=== PATIENT | female | born 1960 | race Caucasian/White ===

== ENCOUNTER 2016-12-30 11:18 | Observation (INO) | payer OTHER ==
[~2016-12-30] VITALS: Ht 162.6 cm; Wt 89.0 kg
[2016-12-30] VITALS (8 sets, daily range): BP systolic 109–188; BP diastolic 58–87; PULSE 72–77; RESP 17–20; TEMP 97.4–97.9; O2SAT 95–98
[2016-12-30] MEDS ORDERED: ADDE30TA PO (11:34)
[2016-12-30] MEDS ORDERED: CYMB60CA PO (11:34)
[2016-12-30] MEDS ORDERED: SODIUM CHLORIDE 0.9% FLUSH 10 ML FLUSH IVF PRN (11:45)
--- NOTE | 2016-12-30 12:38 | RADRPT ---
EXAM DATE/TIME: 12/30/2016 12:00 [facility] COMPARISON: No previous studies available for comparison. INDICATIONS : Chest pain. Patient also feels warm and clammy and has nausea. MEDICAL HISTORY : None. SURGICAL HISTORY : None. ENCOUNTER: Initial ACUITY: 1 day PAIN SCORE: 2/10 LOCATION: Bilateral chest FINDINGS: A single view of the chest demonstrates the lungs to be symmetrically aerated without evidence of mas s, infiltrate or effusion. The cardiomediastinal contours are unremarkable. Osseous structures are intact. CONCLUSION: No acute disease. Goran Bhatti MD on December 30, 2016 at 12:36 Board Certified Radiologist. This report was verified electronically.
[2016-12-30 12:51] LABS: AUTOMATED NEUTROPHIL # 9.2 TH/MM3 (1.8-7.7); BASOPHIL # 0.1 TH/MM3 (0-0.2); BASOPHIL % 0.6 % (0.0-2.0); EOSINOPHIL # 0.2 TH/MM3 (0-0.4); EOSINOPHIL % 2.1 % (0.0-4.0); HEMATOCRIT 41.6 % (35.0-46.0); HEMO FLAGS DIFF FINAL; LYMPH % 14.1 % (9.0-44.0); LYMPHOCYTE # 1.7 TH/MM3 (1.0-4.8); MEAN CORPUSCULAR HEMOGLOBIN 30.1 PG (27.0-34.0); MEAN CORPUSCULAR HGB CONC 32.7 % (32.0-36.0); MONO % 6.3 % (0.0-8.0); NEUT % 76.9 % (16.0-70.0); PLATELET COUNT 329 TH/MM3 (150-450); RED BLOOD COUNT 4.52 MIL/MM3 (4.00-5.30); RED CELL DISTRIBUTION WIDTH 13.9 % (11.6-17.2); WHITE BLOOD COUNT 11.9 TH/MM3 (4.0-11.0)
[2016-12-30 13:06] LABS: INTERNATIONAL NORMALIZED RATIO 0.9 RATIO; PROTHROMBIN TIME - PATIENT 10.3 SEC (9.8-11.6)
[2016-12-30 13:07] LABS: APTT (PATIENT) 24.9 SEC (24.3-30.1)
--- NOTE | 2016-12-30 13:26 | PD ---
HPI Chief Complaint: Chest Pain Time Seen by Provider: 11:41 Travel History International Travel<30 days: No Contact w/Intl Traveler<30days: No Traveled to known affect area: No History of Present Illness HPI 56-year-old female states she was doing dishes this morning when she developed chest pain. She was given aspirin and nitroglycerin as well as morphine prior to arrival which has made her pain almost resolved. She notes only mild tightness now. She denies any prior routine cardiac workup. She states no specific other modifying factors. Severity currently is mild. Quality is tightness. She denies other specific complaints at this time. [facility] Past Medical History ADD: Yes Cancer: Yes (BREAST CA) Diminished Hearing: No Psychiatric: Yes Tetanus Vaccination: < 5 Years Influenza Vaccination: No Past Surgical History Mastectomy: Yes (BILATERAL) Social History Alcohol Use: No Tobacco Use: No (QUIT 10 YEARS AGO) Substance Use: No (PT DENIES ) Allergies-Medications (Allergen,Severity, Reaction): Coded Allergies: No Known Allergies (Unverified , 12/30/16) Reported Meds & Prescriptions Reported Meds & Active Scripts Active Reported Adderall (Amphetamine-Dextroamphetamine) 30 Mg Tab 30 Mg PO BID Avoid late evening doses. Space doses at least 4 to 6 hours if more than once/day dosing. Cymbalta DR (Duloxetine HCl) 60 Mg Capdr 60 Mg PO DAILY Review of Systems Except as stated in HPI: all other systems reviewed are Neg Physical Exam Narrative GENERAL: Well-nourished, well-developed patient. well appearing SKIN: Warm and dry. HEAD: Normocephalic and atraumatic. EYES: No injection or drainage. ENT: No nasal drainage noted. NECK: Supple, trachea midline. CARDIOVASCULAR: Regular rate and rhythm RESPIRATORY: Breath sounds equal bilaterally. No accessory muscle use. GASTROINTESTINAL: Abdomen soft, non-tender, nondistended. EXTREMITIES: No edema. NEUROLOGICAL: Awake and alert. Motor and sensory grossly within normal limits. Normal speech. Data Data Last Documented VS Vital Signs Date Time Temp Pulse Resp B/P (MAP) Pulse Ox O2 Delivery O2 Flow Rate FiO2 12/30/16 15:00 97.8 77 18 150/86 (107) 98 Room Air Orders Orders Electrocardiogram (12/30/16 11:37) B-Type Natriuretic Peptide (12/30/16 11:37) Ckmb (Isoenzyme) Profile (12/30/16 11:37) Complete Blood Count With Diff (12/30/16 11:37) Comprehensive Metabolic Panel (12/30/16 11:37) D-Dimer (12/30/16 11:37) Magnesium (Mg) (12/30/16 11:37) Prothrombin Time / Inr (Pt) (12/30/16 11:37) Act Partial Throm Time (Ptt) (12/30/16 11:37) Troponin I (12/30/16 11:37) Chest, Single Ap (12/30/16 11:37) Ecg Monitoring (12/30/16 11:37) Bilateral Bp Monitoring (12/30/16 11:37) Iv Access Insert/Monitor (12/30/16 11:37) Oximetry (12/30/16 11:37) Sodium Chloride 0.9% Flush (Ns Flush) (12/30/16 11:45) Ct Pulmonary Angiogram (12/30/16 ) Iohexol 350 Inj (Omnipaque 350 Inj) (12/30/16 14:51) Admit Order (Ed Use Only) (12/30/16 15:38) Labs Laboratory Tests Test 12/30/16 11:45 12/30/16 11:51 White Blood Count 11.9 TH/MM3 Red Blood Count 4.52 MIL/MM3 Hemoglobin 13.6 GM/DL Hematocrit 41.6 % Mean Corpuscular Volume 92.0 FL Mean Corpuscular Hemoglobin 30.1 PG Mean Corpuscular Hemoglobin Concent 32.7 % Red Cell Distribution Width 13.9 % Platelet Count 329 TH/MM3 Mean Platelet Volume 8.9 FL Neutrophils (%) (Auto) 76.9 % Lymphocytes (%) (Auto) 14.1 % Monocytes (%) (Auto) 6.3 % Eosinophils (%) (Auto) 2.1 % Basophils (%) (Auto) 0.6 % Neutrophils # (Auto) 9.2 TH/MM3 Lymphocytes # (Auto) 1.7 TH/MM3 Monocytes # (Auto) 0.7 TH/MM3 Eosinophils # (Auto) 0.2 TH/MM3 Basophils # (Auto) 0.1 TH/MM3 CBC Comment DIFF FINAL Differential Comment Blood Urea Nitrogen 19 MG/DL Creatinine 0.87 MG/DL Random Glucose 114 MG/DL Total Protein 7.5 GM/DL Albumin 3.5 GM/DL Calcium Level 9.2 MG/DL Magnesium Level 2.5 MG/DL Alkaline Phosphatase 79 U/L Aspartate Amino Transf (AST/SGOT) 18 U/L Alanine Aminotransferase (ALT/SGPT) 36 U/L Total Bilirubin 0.2 MG/DL Sodium Level 137 MEQ/L Potassium Level 4.7 MEQ/L Chloride Level 103 MEQ/L Carbon Dioxide Level 28.2 MEQ/L Anion Gap 6 MEQ/L Estimat Glomerular Filtration Rate 67 ML/MIN Total Creatine Kinase 69 U/L Troponin I LESS THAN 0.02 NG/ML Prothrombin Time 10.3 SEC Prothromb Time International Ratio 0.9 RATIO Activated Partial Thromboplast Time 24.9 SEC D-Dimer Quantitative (PE/DVT) 0.58 MG/L FEU B-Type Natriuretic Peptide 5 PG/ML MDM Medical Decision Making Medical Screen Exam Complete: Yes Emergency Medical Condition: Yes Medical Record Reviewed: Yes (past history confirmed) Interpretation(s) EKG shows NSR, no ST elevation or depression, and no arrhythmias. No significant T-wave inversions. CBC & BMP Diagram 12/30/16 11:45 Last 24 hours Impressions Chest X-Ray 12/30/16 1137 Signed Impressions: Service Date/Time: Friday, December 30, 2016 12:00 - CONCLUSION: No acute disease. Goran Bhatti MD Last 24 hours Impressions Chest X-Ray 12/30/16 1137 Signed Impressions: Service Date/Time: Friday, December 30, 2016 12:00 - CONCLUSION: No acute disease. Goran Bhatti MD CT Angiography 12/30/16 0000 Signed Impressions: Service Date/Time: Friday, December 30, 2016 14:36 - CONCLUSION: 1. No evidence of pulmonary embolism. 2. Mild aneurysmal dilatation of the ascending thoracic aorta which measures 4 cm in greatest dimension. 3. 5-6 mm noncalcified nodule within the anterior aspect of the right midlung field which is indeterminate. Followup CT the chest in 6-12 months is recommended. 4. Minimal bilateral posterior atelectatic changes and/or scarring. 5. Cardiomegaly. 6. Elevation of the right hemidiaphragm. Goran Bhatti MD Differential Diagnosis MA, gastritis, PE, cardiac Narrative Course Will check blood work, chest x-ray, EKG and monitor ed workup with 4cm mild dilation of the aorta will discuss with vascular surgery Patient updated and agrees to outpatient vascular surgery follow-up and chest pain center observation here Physician Communication Physician Communication dr pattie grace can follow outpatient in regards to aneurysm Diagnosis Primary Impression: Chest pain Qualified Codes: R07.9 - Chest pain, unspecified Admitting Information Admitting Physician Requests: Observation Jia Monteiro MD Dec 30, 2016 13:26
[2016-12-30 14:07] LABS: ALT (GPT) 36 U/L (10-53); ANION GAP 6 MEQ/L (5-15); AST (GOT) 18 U/L (15-37); BICARBONATE 28.2 MEQ/L (21.0-32.0); BLOOD UREA NITROGEN 19 MG/DL (7-18); CHLORIDE 103 MEQ/L (98-107); GLOMERULAR FILTRATION RATE 67 ML/MIN (>89); MAGNESIUM 2.5 MG/DL (1.5-2.5); POTASSIUM 4.7 MEQ/L (3.5-5.1); SODIUM (NA) 137 MEQ/L (136-145)
[2016-12-30 14:10] LABS: ALKALINE PHOSPHATASE 79 U/L (45-117); TOTAL BILIRUBIN ADULT 0.2 MG/DL (0.2-1.0)
[2016-12-30 14:19] LABS: CREATINE KINASE 69 U/L (26-192)
[2016-12-30] MEDS ORDERED: IOHEXOL 350 MG/ML 10 ML VIAL (for RAD DIAG) IVCONTRAST ONE (14:51)
--- NOTE | 2016-12-30 15:05 | RADRPT ---
EXAM DATE/TIME: 12/30/2016 14:36 [facility] COMPARISON: No previous studies available for comparison. INDICATIONS : Chest pain. IV CONTRAST: 60 cc Omnipaque 350 (iohexol) IV RADIATION DOSE: 23.10 CTDIvol (mGy) MEDICAL HISTORY : Carcinoma, breast. SURGICAL HISTORY : Mastectomy, bilateral. ENCOUNTER: Initial ACUITY: 1 day PAIN SCALE: 4/10 LOCATION: Left chest TECHNIQUE: Volumetric scanning of the chest was performed using a pulmonary embolism protocol MIP images were re constructed. Using automated exposure control and adjustment of the mA and/or kV according to patien t size, radiation dose was kept as low as reasonably achievable to obtain optimal diagnostic quality images. DICOM format image data is available electronically for review and comparison. Follow-up recommendations for detected pulmonary nodules are based at a minimum on nodule size and pa tient risk factors according to Fleischner Society Guidelines. FINDINGS: PULMONARY ARTERIES: No filling defects are seen in the pulmonary arteries through the segmental level. LUNGS: Minimal bilateral scattered atelectasis and/or fibrotic scarring is noted posteriorly. There is no co nsolidation or pneumothorax . There is a tiny 5-6 mm noncalcified nodule within the right anterior mi dlung field. Followup CT of the chest in 6-12 months is recommended. PLEURAE: There is no pleural thickening or pleural effusion. MEDIASTINUM: There is aneurysmal dilatation of the ascending thoracic aorta which measures 4 cm in greatest dimens ion. No mediastinal or hilar lymphadenopathy is noted. The great vessels are unremarkable. Cardiomega ly is noted. MUSCULOSKELETAL: Within normal limits for patient age. MISCELLANEOUS: The visualized upper abdominal organs demonstrate no acute abnormality. Bilateral breast implants are intact. There is elevation of the right hemidiaphragm. CONCLUSION: 1. No evidence of pulmonary embolism. 2. Mild aneurysmal dilatation of the ascending thoracic aorta which measures 4 cm in greatest dimensi on. 3. 5-6 mm noncalcified nodule within the anterior aspect of the right midlung field which is indeterm inate. Followup CT the chest in 6-12 months is recommended. 4. Minimal bilateral posterior atelectatic changes and/or scarring. 5. Cardiomegaly. 6. Elevation of the right hemidiaphragm. Goran Bhatti MD on December 30, 2016 at 14:55 Board Certified Radiologist. This report was verified electronically.
[2016-12-30] MEDS ORDERED: ACETAMINOPHEN 500 MG CPLT PO PRN (16:45)
[2016-12-30] MEDS ORDERED: ONDANSETRON HCL 4 MG/2 ML VIAL IV PRN (16:45)
[2016-12-30] MEDS ORDERED: DULoxetine HCl DR 60 MG CAP PO ONE (16:45)
[2016-12-30] MEDS ORDERED: RESP: ALBUTEROL 2.5 MG/IPRATROPIUM 0.5 MG NEB (PRN) INH (16:45)
[2016-12-30] MEDS ORDERED: SODIUM CHLORIDE 0.9% FLUSH 5 ML FLUSH IVF PRN (16:45)
[2016-12-30] MEDS ORDERED: cloNIDine HCL 0.1 MG TAB PO PRN (16:45)
--- NOTE | 2016-12-30 16:48 | HHI.HP ---
[facility] Primary Care Physician Vidya Suarez M.D. Chief Complaint Chest pain History of Present Illness This is a 56-year-old female that presents to ED via ambulance with a complaint of chest discomfort that began 10:00 this morning. She was doing dishes at home when this occurred. She describes a left-sided tightness. Is very intense. She did not notice a change in her breathing. No nausea or diaphoresis. She became dizzy. [facility] was called. She states she was given nitroglycerin in route via ambulance which did not improve her symptoms. She states she is given IV pain medication which did help. Her discomfort has improved greatly but is still rated as a 2 out of 10. She's had the pain at this time for about 6 hours. Denies history of heart disease but states it runs in her family. Denies recent illness. Denies fevers or chills per she missed been under a lot of stress. Her father recently and she's having issues with her oldest son. Review of Systems General: Patient denies fevers, chills recent, and recent travel HEENT: Patient denies headache, sore throat, difficulty swallowing. Cardiovascular: Has the chest discomfort as mentioned above. Denies sensation of heart beating rapidly or irregularly. No syncope. Respiratory: Denies shortness of breath or inspirational chest discomfort. Denies coughing wheezing or hemoptysis. GI: Patient denies nausea, vomiting, diarrhea, abdominal pain, bloody stools. Musculoskeletal: Patient denies joint pain or edema. Denies calf pain or edema. Neurovascular: She felt dizzy. Patient denies numbness, tingling, weakness in extremities. Denies headache. Endocrine: Denies polyuria and polydipsia. Hematologic: Denies easy bruising. Skin: Denies rash or itching. Past Family Social History Allergies: Coded Allergies: No Known Allergies (Unverified , 12/30/16) Past Medical History Pression. ADD. Breast cancer with bilateral mastectomy. Past Surgical History Mastectomy. Reported Medications Reported Meds & Active Scripts Active Reported Adderall (Amphetamine-Dextroamphetamine) 30 Mg Tab 30 Mg PO BID Avoid late evening doses. Space doses at least 4 to 6 hours if more than once/day dosing. Cymbalta DR (Duloxetine HCl) 60 Mg Capdr 60 Mg PO DAILY Active Ordered Medications Current Medications Medications (Trade) Dose Ordered Sig/Erinn Route Start Time Stop Time Status Last Admin (NS Flush) 2 ml UNSCH PRN IVF 12/30/16 11:45 12/30/16 12:02 Family History States that her father had CAD. States he had a VT in his 60s. Lived to be 86. Physical Exam Vital Signs Vital Signs Date Time Temp Pulse Resp B/P (MAP) Pulse Ox O2 Delivery O2 Flow Rate FiO2 12/30/16 15:00 97.8 77 18 150/86 (107) 98 Room Air 12/30/16 13:32 97.9 72 18 131/77 (95) 98 Room Air 12/30/16 11:39 17 96 Room Air 12/30/16 11:39 72 17 116/72 (87) 109/58 (75) 12/30/16 11:30 69 17 98 Room Air 12/30/16 11:29 97.8 74 17 116/72 (87) 97 Physical Exam GENERAL: This is a well-nourished, well-developed patient, in no apparent distress. Patient speaks in clear complete sentences. Patient is pleasant. HEENT: Head is atraumatic and normocephalic. Neck is supple without lymphadenopathy and trachea is midline. No JVD or carotid bruits. CARDIOVASCULAR: Regular rate and rhythm without murmurs, gallops, or rubs. RESPIRATORY: Clear to auscultation. Breath sounds equal bilaterally. No wheezes , rales, or rhonchi. Chest wall is nontender. No use of accessory muscles. GASTROINTESTINAL: Abdomen is nontender, nondistended. Abdomen soft. No obvious pulsatile mass or bruit. No CVA tenderness. Strong femoral pulses bilaterally. Normal bowel sounds in all quadrants. MUSCULOSKELETAL: Patient is moving upper and lower extremities freely. No calf tenderness or edema, no Homans sign. Strong pulses in upper and lower extremities. NEUROLOGICAL: Patient is alert and oriented. Cranial nerves 2-12 are grossly intact. No focal deficits and speech is clear. SKIN: No rash and turgor is normal. Laboratory Laboratory Tests Test 12/30/16 11:45 12/30/16 11:51 White Blood Count 11.9 Red Blood Count 4.52 Hemoglobin 13.6 Hematocrit 41.6 Mean Corpuscular Volume 92.0 Mean Corpuscular Hemoglobin 30.1 Mean Corpuscular Hemoglobin Concent 32.7 Red Cell Distribution Width 13.9 Platelet Count 329 Mean Platelet Volume 8.9 Neutrophils (%) (Auto) 76.9 Lymphocytes (%) (Auto) 14.1 Monocytes (%) (Auto) 6.3 Eosinophils (%) (Auto) 2.1 Basophils (%) (Auto) 0.6 Neutrophils # (Auto) 9.2 Lymphocytes # (Auto) 1.7 Monocytes # (Auto) 0.7 Eosinophils # (Auto) 0.2 Basophils # (Auto) 0.1 CBC Comment DIFF FINAL Differential Comment Blood Urea Nitrogen 19 Creatinine 0.87 Random Glucose 114 Total Protein 7.5 Albumin 3.5 Calcium Level 9.2 Magnesium Level 2.5 Alkaline Phosphatase 79 Aspartate Amino Transf (AST/SGOT) 18 Alanine Aminotransferase (ALT/SGPT) 36 Total Bilirubin 0.2 Sodium Level 137 Potassium Level 4.7 Chloride Level 103 Carbon Dioxide Level 28.2 Anion Gap 6 Estimat Glomerular Filtration Rate 67 Total Creatine Kinase 69 Troponin I LESS THAN 0.02 Prothrombin Time 10.3 Prothromb Time International Ratio 0.9 Activated Partial Thromboplast Time 24.9 D-Dimer Quantitative (PE/DVT) 0.58 B-Type Natriuretic Peptide 5 Result Diagram: 12/30/16 1145 12/30/16 1145 Imaging Last 48 hours Impressions Chest X-Ray 12/30/16 1137 Signed Impressions: Service Date/Time: Friday, December 30, 2016 12:00 - CONCLUSION: No acute disease. Goran Bhatti MD CT Angiography 12/30/16 0000 Signed Impressions: Service Date/Time: Friday, December 30, 2016 14:36 - CONCLUSION: 1. No evidence of pulmonary embolism. 2. Mild aneurysmal dilatation of the ascending thoracic aorta which measures 4 cm in greatest dimension. 3. 5-6 mm noncalcified nodule within the anterior aspect of the right midlung field which is indeterminate. Followup CT the chest in 6-12 months is recommended. 4. Minimal bilateral posterior atelectatic changes and/or scarring. 5. Cardiomegaly. 6. Elevation of the right hemidiaphragm. Goran Bhatti MD Course Initial EKG is sinus rhythm without significant ST segment depressions or elevations. Caprini VTE Risk Assessment Caprini VTE Risk Assessment: No/Low Risk (score <= 1) Caprini Risk Assessment Model Point Value = 1 Point Value = 2 Point Value = 3 Point Value = 5 Age 41-60 Minor surgery BMI > 25 kg/m2 Swollen legs Varicose veins or History of unexplained or recurrent spontaneous Oral contraceptives or hormone replacement Sepsis (< 1 month) Serious lung disease, including pneumonia (< 1 month) Abnormal pulmonary function Acute myocardial infarction Congestive heart failure (< 1 month) History of inflammatory bowel disease Medical patient at bed rest Age 61-74 Arthroscopic surgery Major open surgery (> 45 min) Laparoscopic surgery (> 45 min) Malignancy Confined to bed (> 72 hours) Immobilizing plaster cast Central venous access Age >= 75 History of VTE Family history of VTE Factor V Leiden Prothrombin [id number] Lupus anticoagulant Anticardiolipin antibodies Elevated serum homocysteine Heparin-induced thrombocytopenia Other congenital or acquired thrombophilia Stroke (< 1 month) Elective arthroplasty Hip, pelvis, or leg fracture Acute spinal cord injury (< 1 month) Prophylaxis Regimen Total Risk Factor Score Risk Level Prophylaxis Regimen 0-1 Low Early ambulation 2 Moderate Order ONE of the following: *Sequential Compression Device (SCD) *Heparin 5000 units SQ BID 3-4 Higher Order ONE of the following medications: *Heparin 5000 units SQ TID *Enoxaparin/Lovenox 40 mg SQ daily (WT < 150 kg, CrCl > 30 mL/min) *Enoxaparin/Lovenox 30 mg SQ daily (WT < 150 kg, CrCl > 10-29 mL/min) *Enoxaparin/Lovenox 30 mg SQ BID (WT < 150 kg, CrCl > 30 mL/min) AND/OR *Sequential Compression Device (SCD) 5 or more Highest Order ONE of the following medications: *Heparin 5000 units SQ TID (Preferred with Epidurals) *Enoxaparin/Lovenox 40 mg SQ daily (WT < 150 kg, CrCl > 30 mL/min) *Enoxaparin/Lovenox 30 mg SQ daily (WT < 150 kg, CrCl > 10-29 mL/min) *Enoxaparin/Lovenox 30 mg SQ BID (WT < 150 kg, CrCl > 30 mL/min) AND *Sequential Compression Device (SCD) Assessment and Plan Assessment and Plan * Chest pain: Her symptoms appear to be atypical. She will continue to have serial cardiac enzymes and EKGs for ruling out purposes. She was seen by Dr. Winston Aguilar of cardiology in the chest pain center. She will have a Lexiscan in the a.m. if she rules out. Patient will need to follow-up with Dr. Magdaleno. ER physician spoke with Dr. Fernandez regarding ascending aortic aneurysm and he states he'll follow on outpatient basis. Patient also went to follow-up with a local PCP. * Thoracic aneurysm: Measures 4 cm per radiology. ED physician spoke with vascular surgeon Dr. Magdaleno and he will follow on outpatient basis. * Depression: Continue current medication. * ADD: Continue her medication. Patient is stable at this time. She is agreeable to this plan. Fred Escoto Dec 30, 2016 16:48
[2016-12-30] MEDS ORDERED: ALPRAZolam 0.25 MG TAB PO PRN (17:00)
[2016-12-30] MEDS: ACETAMINOPHEN/HYDROcodone 325 MG/7.5 MG TAB PO PRN ×2 (17:47→21:47)
[2016-12-30 18:21] LABS: CREATINE KINASE 64 U/L (26-192)
[2016-12-30 21:19] LABS: CREATINE KINASE 75 U/L (26-192)
[2016-12-30] MEDS: SODIUM CHLORIDE 0.9% FLUSH 5 ML FLUSH IVF SCH (21:44)
[2016-12-31] VITALS (7 sets, daily range): BP systolic 109–155; BP diastolic 77–87; PULSE 65–78; RESP 13–20; TEMP 98–98.4; O2SAT 95–100
[2016-12-31] MEDS: SODIUM CHLORIDE 0.9% FLUSH 5 ML FLUSH IVF SCH (09:00)
[2016-12-31] MEDS ORDERED: ASPIRIN 325 MG TAB PO SCH (09:00)
[2016-12-31] MEDS ORDERED: DULoxetine HCl DR 60 MG CAP PO SCH (09:00)
[2016-12-31] MEDS ORDERED: REGADENOSON INJ 0.4 MG/5 ML SYR ONE (10:50)
[2016-12-31] MEDS: ACETAMINOPHEN/HYDROcodone 325 MG/7.5 MG TAB PO PRN (12:58)
--- NOTE | 2016-12-31 14:26 | RADRPT ---
EXAM DATE/TIME: 12/31/2016 09:41 [facility] COMPARISON: No previous studies available for comparison. INDICATIONS : Left sided chest pain for one day. Angina. DOSE: 27.2 mCi Tc99m Myoview at stress. 8.7 mCi Tc99m Myoview at rest. 0.4 mg Lexiscan STRESS SYMPTOMS: Dyspnea and heart racing. EJECTION FRACTION: 58% MEDICAL HISTORY : Carcinoma, breast. SURGICAL HISTORY : Mastectomy, bilateral. ENCOUNTER: Initial ACUITY: 1 day PAIN SCALE: 5/10 LOCATION: Left chest TECHNIQUE: The patient underwent pharmacologic stress with infusion of prescribed dose. Continuous ECG tracing was monitored during stress. Gated SPECT imaging was performed after stress and conventional SPECT i maging was performed at rest. The examination was performed on a SPECT/CT scanner, both attenuation and non-corrected datasets were reviewed. FINDINGS: The Gated cineloop images demonstrate no focal wall motion abnormality. The left ventricular ejectio n fraction is calculated at 58%. The cardiac SPECT stress and rest images demonstrate no fixed or reversible defects to suggest infarc t or ischemia. CONCLUSION: No evidence of infarct, ischemia or focal wall motion abnormality. Left ventricular ejection fractio n is equal to 58%. RISK CATEGORY: Low risk (less than 1% annual mortality rate). Goran Bhatti MD on December 31, 2016 at 13:15 Board Certified Radiologist. This report was verified electronically.
--- NOTE | 2016-12-31 14:32 | HHI.DCPOC ---
Discharge Care Plan Diagnosis: (1) Chest pain (2) Thoracic aortic aneurysm (3) Lung nodule Goals to Promote Your Health WILL NEED REPEAT CT OF CHEST TO EVALUATE LUNG NODULE, DISCUSS WITH YOUR PRIMARY CARE DOCTOR. * To prevent worsening of your condition and complications * To maintain your health at the optimal level Directions to Meet Your Goals Take your medications as prescribed Follow your dietary instruction Follow activity as directed Keep your appointments as scheduled Take your immunizations and boosters as scheduled If your symptoms worsen call your PCP, if no PCP go to Urgent Care Center or Emergency Room Smoking is Dangerous to Your Health. Avoid second hand smoke Call the 24-hour hour crisis hotline for domestic abuse at Fred Escoto Dec 31, 2016 14:32
--- NOTE | 2016-12-31 16:00 | TR ---
Date Performed: 12/31/2016 Time Performed: 10:50:03 DOCTOR: eJwel Stanley DRUG LIST: CLINICAL HISTORY: REASON FOR TEST: Angina REASON FOR ENDING: OBSERVATION: CONCLUSION: Lexiscan stress test was performed under standard four minute protocol. Radionuclid e was injected one minute prior to ending the test. No electrocardiographic abormalities were present to suggest ischemia. Nuclear imaging and interpretation are pending. COMMENTS:
--- NOTE | 2016-12-31 16:17 | EKG ---
Date Performed: 12/30/2016 Time Performed: 20:05:52 PTAGE: 56 years EKG: Sinus rhythm MINIMAL VOLTAGE CRITERIA FOR LVH, CONSIDER NORMAL VARIANT NONSPECIFIC T-WAVE ABNORMALITY BORDERLINE ECG PREVIOUS TRACING : 12/30/2016 17.01 Since previous tracing, no significant change noted DOCTOR: Jewel Stanley Interpretating Date/Time 12/31/2016 16:15:55
--- NOTE | 2016-12-31 16:18 | EKG ---
Date Performed: 12/30/2016 Time Performed: 17:01:26 PTAGE: 56 years EKG: Sinus rhythm NONSPECIFIC T-WAVE ABNORMALITY BORDERLINE ECG PREVIOUS TRACING : 12/30/2016 11.44 Since previous tracing, no significant change noted DOCTOR: Jewel Stanley Interpretating Date/Time 12/31/2016 16:16:10
--- NOTE | 2016-12-31 16:19 | EKG ---
Date Performed: 12/30/2016 Time Performed: 11:44:20 PTAGE: 56 years EKG: Sinus rhythm LOW QRS VOLTAGE IN PRECORDIAL LEADS NONSPECIFIC T-WAVE ABNORMALITY BORDERLINE ECG NO PREVIOUS TRACING DOCTOR: Jewel Stanley Interpretating Date/Time 12/31/2016 16:17:51
== END 2016-12-31 16:34 | disposition home or self-care (01) ==
LOC: NEPC 11:18 → NEDA 15:40 → NEPGCP 17:23
PROVIDERS: ADMIT Internal Medicine Cardiovascular Disease; ATTEND Internal Medicine Cardiovascular Disease
DX: R07.89 Other chest pain (principal); I71.2 Thoracic aortic aneurysm, without rupture; R91.1 Solitary pulmonary nodule; F32.9 Major depressive disorder, single episode, unspecified; R94.31 Abnormal electrocardiogram [ECG] [EKG]; Z85.3 Personal history of malignant neoplasm of breast; Z90.13 Acquired absence of bilateral breasts and nipples
CPT/HCPCS: 71010; 71275; 78452; 80053; 82550; 83735; 83880; 84484; 85025; 85379; 85610; 85730; 93005; 93017; 99285; A9502; G0378; J2785; Q9967